=== PATIENT | female | born 1960 | race Caucasian/White ===

== ENCOUNTER 2016-09-13 18:56 | Emergency (ER) | payer BC, OTHER ==
[2016-09-13 19:18] LABS: Bilirubin Negative (Negative); Blood, Urine Trace (Negative); Clarity Hazy (Clear); Glucose, Urine (Dipstick) Negative (Negative); Leukocyte Trace (Negative); Nitrite Negative (Negative); Protein, Urine (Dipstick) 30 mg/dL (Neg-Trace); Urobilinogen 0.2 mg/dL (0.2-1.0); pH, Urine 5.5 (5.0-9.0)
[2016-09-13 19:21] LABS: Specific Gravity, Urine 1.031 (1.002-1.036)
[2016-09-13 19:24] LABS: Bacteria/HPF Rare-Few HPF (None Seen); RBC/HPF 0-3 HPF (0-3); Squamous Epithelial 0-3 HPF (0-3)
== END 2016-09-13 19:35 | disposition home or self-care (01) ==
LOC: MADERS 18:56
DX: N39.0 Urinary tract infection, site not specified (principal); E78.5 Hyperlipidemia, unspecified; E78.00 Pure hypercholesterolemia, unspecified; I10 Essential (primary) hypertension
CPT/HCPCS: 81003; 81015; 87086; 99283

== ENCOUNTER 2017-05-14 13:44 | Outpatient (CLI) | payer MEDICARE ==
[2017-05-14 13:56] LABS: INR-International Normal Ratio 1.7; Prothrombin Time 20.9 SEC (12.0-14.7)
== END 2017-05-14 13:45 | disposition home or self-care (01) ==
LOC: MADLAB 13:44
PROVIDERS: ATTEND Family Medicine
DX: Z51.81 Encounter for therapeutic drug level monitoring (principal); Z79.01 Long term (current) use of anticoagulants
CPT/HCPCS: 36415; 85610

== ENCOUNTER 2017-06-28 11:29 | Outpatient (CLI) | payer MEDICARE ==
[2017-06-28 11:49] LABS: INR-International Normal Ratio 1.8; Prothrombin Time 21.4 SEC (12.0-14.7)
== END 2017-06-28 11:30 | disposition home or self-care (01) ==
LOC: MADLAB 11:29
PROVIDERS: ATTEND Family Medicine
DX: Z51.81 Encounter for therapeutic drug level monitoring (principal); Z79.01 Long term (current) use of anticoagulants
CPT/HCPCS: 36415; 85610

== ENCOUNTER 2017-09-04 13:35 | Outpatient (CLI) | payer MEDICARE ==
[2017-09-04 14:14] LABS: INR-International Normal Ratio 1.9; Prothrombin Time 22.4 SEC (12.0-14.7)
== END 2017-09-04 13:36 | disposition home or self-care (01) ==
LOC: MADLAB 13:35
PROVIDERS: ATTEND Nurse Practitioner
DX: I81 Portal vein thrombosis (principal)
CPT/HCPCS: 36415; 85610

== ENCOUNTER 2017-10-15 09:14 | Outpatient (CLI) | payer MEDICARE ==
[2017-10-15 10:33] LABS: INR-International Normal Ratio 1.2; Prothrombin Time 15.2 SEC (12.0-14.7)
== END 2017-10-15 09:15 | disposition home or self-care (01) ==
LOC: MADLAB 09:14
PROVIDERS: ATTEND Nurse Practitioner
DX: Z51.81 Encounter for therapeutic drug level monitoring (principal); I81 Portal vein thrombosis; Z79.01 Long term (current) use of anticoagulants
CPT/HCPCS: 36415; 85610

== ENCOUNTER 2018-01-09 12:05 | Outpatient (CLI) | payer OTHER ==
[2018-01-09 12:44] LABS: INR-International Normal Ratio 1.4; Prothrombin Time 17.4 SEC (12.0-14.7)
== END 2018-01-09 12:06 | disposition home or self-care (01) ==
LOC: MADLAB 12:05
PROVIDERS: ATTEND Nurse Practitioner
DX: Z51.81 Encounter for therapeutic drug level monitoring (principal); Z79.01 Long term (current) use of anticoagulants
CPT/HCPCS: 36415; 85610

== ENCOUNTER 2018-06-03 09:22 | Emergency (ER) | payer BC, OTHER, SELFPAY ==
[2018-06-03 09:57] LABS: Bilirubin Small (Negative); Blood, Urine Large (Negative); Glucose, Urine (Dipstick) 100 mg/dL (Negative); Leukocyte Large (Negative); Nitrite Negative (Negative); Protein, Urine (Dipstick) > or equal to 300 mg/dL (Neg-Trace); Urobilinogen 0.2 mg/dL (0.2-1.0)
[2018-06-03] MEDS ORDERED: Acetaminophen 500 MG TAB ONE (09:57)
[2018-06-03] MEDS ORDERED: Phenazopyridine HCl 97.5 MG TABLET ONE (09:57)
[2018-06-03 10:05] LABS: Clarity Cloudy (Clear); RBC/HPF 21-50 HPF (0-3)
[2018-06-03 10:06] LABS: Bacteria/HPF 1+ HPF (None Seen); Other Microscopic Description C&S SET UP; Squamous Epithelial 0-3 HPF (0-3)
== END 2018-06-03 10:15 | disposition home or self-care (01) ==
LOC: MADERS 09:22
DX: N10 Acute pyelonephritis (principal); F32.9 Major depressive disorder, single episode, unspecified; I10 Essential (primary) hypertension; E78.5 Hyperlipidemia, unspecified; Z79.899 Other long term (current) drug therapy; Z79.4 Long term (current) use of insulin
CPT/HCPCS: 81003; 81015; 87086; 99283

== ENCOUNTER 2019-08-19 14:29 | Emergency (ER) | payer OTHER | END 2019-08-19 15:12 | disposition home or self-care (01) | LOC: MADERS 14:29 | DX: J11.1 Influenza due to unidentified influenza virus with other respiratory manifestations (principal); E78.5 Hyperlipidemia, unspecified; E78.00 Pure hypercholesterolemia, unspecified; I10 Essential (primary) hypertension; E11.9 Type 2 diabetes mellitus without complications; F41.9 Anxiety disorder, unspecified; F32.9 Major depressive disorder, single episode, unspecified; Z79.899 Other long term (current) drug therapy | CPT/HCPCS: 99283 ==

== ENCOUNTER 2019-12-15 10:01 | Emergency (ER) | payer OTHER ==
[2019-12-15] MEDS ORDERED: Dexamethasone 4 MG TAB ONE (10:40)
[2019-12-15] MEDS ORDERED: Ketorolac Tromethamine 60 MG/2 ML VIAL ONE (10:40)
== END 2019-12-15 11:05 | disposition home or self-care (01) ==
LOC: MADERS 10:01
DX: M62.838 Other muscle spasm (principal); E11.9 Type 2 diabetes mellitus without complications; E78.5 Hyperlipidemia, unspecified; E78.00 Pure hypercholesterolemia, unspecified; I10 Essential (primary) hypertension; F41.9 Anxiety disorder, unspecified; Z79.4 Long term (current) use of insulin; Z79.899 Other long term (current) drug therapy
CPT/HCPCS: 96372; 99283; J1885; J8540

== ENCOUNTER 2021-01-15 21:13 | Emergency (ER) | payer BC, OTHER ==
[2021-01-15] MEDS ORDERED: Orphenadrine Citrate 60 MG/2 ML VIAL ONE (21:48)
== END 2021-01-15 22:41 | disposition home or self-care (01) ==
LOC: MADERS 21:13
DX: M54.5 Low back pain (principal); E11.9 Type 2 diabetes mellitus without complications; E78.5 Hyperlipidemia, unspecified; E78.00 Pure hypercholesterolemia, unspecified; I10 Essential (primary) hypertension; Z79.899 Other long term (current) drug therapy
CPT/HCPCS: 72131; 96372; J2360

== ENCOUNTER 2021-01-31 13:21 | Emergency (ER) | payer BC, OTHER ==
[2021-01-31] MEDS ORDERED: Ondansetron ODT 4 MG TAB ONE (14:19)
[2021-01-31] MEDS ORDERED: Ketorolac Tromethamine 30 MG/ML VIAL ONE (14:19)
== END 2021-01-31 14:35 | disposition home or self-care (01) ==
LOC: MADERS 13:21
DX: M54.41 Lumbago with sciatica, right side (principal); M54.42 Lumbago with sciatica, left side; E11.9 Type 2 diabetes mellitus without complications; Z79.4 Long term (current) use of insulin; E78.5 Hyperlipidemia, unspecified; E78.00 Pure hypercholesterolemia, unspecified; I10 Essential (primary) hypertension; G43.909 Migraine, unspecified, not intractable, without status migrainosus
CPT/HCPCS: 96372; 99283; J1885; Q0162

== ENCOUNTER 2021-04-10 13:07 | Emergency (ER) | payer OTHER, BC ==
[2021-04-10] MEDS ORDERED: Lidocaine 1% w/Epinephrine 1:100K 20 ML VIAL ONE (13:36)
[2021-04-10] MEDS ORDERED: Boostrix 0.5 ML (Tdap) VIAL ONE (13:41)
[2021-04-10] MEDS ORDERED: Morphine 4 MG/ML VIAL ONE (13:41)
== END 2021-04-10 16:55 | disposition home or self-care (01) ==
LOC: MADERS 13:07
DX: S51.851A Open bite of right forearm, initial encounter (principal); S51.852A Open bite of left forearm, initial encounter; S61.253A Open bite of left middle finger without damage to nail, initial encounter; S51.811A Laceration without foreign body of right forearm, initial encounter; E78.5 Hyperlipidemia, unspecified; E78.00 Pure hypercholesterolemia, unspecified; I10 Essential (primary) hypertension; Z23 Encounter for immunization; W54.0XXA Bitten by dog, initial encounter
CPT/HCPCS: 12013; 90471; 90715; 96372; J2270

== ENCOUNTER 2021-11-04 16:45 | Emergency (ER) | payer OTHER, BC ==
[2021-11-04] MEDS ORDERED: Naproxen 500 MG TAB ONE (18:09)
== END 2021-11-04 18:14 | disposition home or self-care (01) ==
LOC: MADERS 16:45
DX: S39.012A Strain of muscle, fascia and tendon of lower back, initial encounter (principal); S16.1XXA Strain of muscle, fascia and tendon at neck level, initial encounter; S80.11XA Contusion of right lower leg, initial encounter; E11.9 Type 2 diabetes mellitus without complications; E78.2 Mixed hyperlipidemia; I10 Essential (primary) hypertension; Z79.899 Other long term (current) drug therapy; V53.5XXA Driver of pick-up truck or van injured in collision with car, pick-up truck or van in traffic accident, initial encounter
CPT/HCPCS: 72125; 72131; 72192

== ENCOUNTER 2023-04-15 11:16 | Emergency (ER) | payer BC, OTHER ==
[2023-04-15] MEDS ORDERED: Ketorolac Tromethamine 30 MG/ML VIAL ONE (11:44)
[2023-04-15] MEDS ORDERED: Orphenadrine Citrate 60 MG/2 ML VIAL ONE (11:44)
== END 2023-04-15 12:10 | disposition home or self-care (01) ==
LOC: MADERS 11:16
DX: G89.29 Other chronic pain (principal); M54.50 Low back pain, unspecified; E11.9 Type 2 diabetes mellitus without complications; Z79.4 Long term (current) use of insulin; E78.00 Pure hypercholesterolemia, unspecified; I10 Essential (primary) hypertension; Z79.899 Other long term (current) drug therapy
CPT/HCPCS: 96372; 99283; J1885; J2360

== ENCOUNTER 2023-11-28 19:04 | Emergency (ER) | payer BC, OTHER ==
[2023-11-28] MEDS ORDERED: Ibuprofen 800 MG TAB ONE (19:37)
[2023-11-28 20:32] LABS: Influenza A by NAA Not Detected (NotDetected); Influenza B by NAA Not Detected (NotDetected); SARS-CoV-2 NAA Rapid Test Not Detected (NotDetected)
== END 2023-11-28 20:43 | disposition home or self-care (01) ==
LOC: MADERS 19:04
DX: J06.9 Acute upper respiratory infection, unspecified (principal); B97.89 Other viral agents as the cause of diseases classified elsewhere; I10 Essential (primary) hypertension; E11.9 Type 2 diabetes mellitus without complications; E78.00 Pure hypercholesterolemia, unspecified; F41.8 Other specified anxiety disorders; Z79.4 Long term (current) use of insulin; Z79.899 Other long term (current) drug therapy
CPT/HCPCS: 87081; 87430; 99283

== ENCOUNTER 2024-03-03 18:33 | Emergency (ER) | payer BC ==
[2024-03-03] MEDS ORDERED: Ibuprofen 200 MG TAB ONE (18:50)
[2024-03-03] MEDS ORDERED: HYDROcodone/Acetaminophen 10/325 mg Tablet ONE (19:17)
== END 2024-03-03 19:27 | disposition home or self-care (01) ==
LOC: MADERS 18:33
DX: S82.832A Other fracture of upper and lower end of left fibula, initial encounter for closed fracture (principal); E78.00 Pure hypercholesterolemia, unspecified; I10 Essential (primary) hypertension; Z79.899 Other long term (current) drug therapy; W13.0XXA Fall from, out of or through balcony, initial encounter
CPT/HCPCS: 99283